=== PATIENT | female | born 1960 | race African-American/Black ===

== ENCOUNTER 2017-06-13 11:05 | Emergency (ER) | payer MEDICARE, MEDICAID ==
[~2017-06-13] VITALS: Ht 160 cm; Wt 71.0 kg
[~2017-06-13 11:05] MED LIST: ALLO100T PO; AMLO5TAB88 PO; ASPI-1158 PO; ATOR20TA PO; CLON0.2T12 PO; COR25 PO; CYM20 PO; DEXTL PO; HYDR-523 PO; LACT10SO7 PO; LEVO125T8 PO; LOSA50TA3 PO; NEPVIT PO; PREG100C PO; PREG50CA PO; PROT40 PO; RENA-VITE; SEVE800T8 PO
[2017-06-13 11:09] VITALS: BP 174/93
== END 2017-06-13 13:00 | disposition left against medical advice (07) ==
LOC: ER 12:36
DX: R07.9 Chest pain, unspecified (principal); Z53.21 Procedure and treatment not carried out due to patient leaving prior to being seen by health care provider

== ENCOUNTER 2017-07-08 05:22 | Inpatient (IN) | payer MEDICARE, MEDICAID ==
[2017-07-08] VITALS (68 sets, daily range): BP systolic 104–276; BP diastolic 57–200
[~2017-07-08] VITALS: Ht 160 cm; Wt 69.9 kg
[2017-07-08 06:56] LABS: INR 1.2; PROTHROMBIN TIME 12.3 sec (9.4-11.6)
[2017-07-08 06:57] LABS: BASOPHILS % 0.5 % (0.0-2.0); EOSINOPHILS % 4.7 % (0.0-5.0); HEMATOCRIT. 28.6 % (36.0-48.0); HEMOGLOBIN. 9.2 g/dL (12.0-16.0); LYMPHOCYTES % 9.4 % (20.0-50.0); MEAN CORPUSCULAR HEMOGLOBIN 27.6 pg (28.0-32.0); MEAN CORPUSCULAR VOLUME 85.6 fL (81.0-99.0); MEAN PLATELET VOLUME 9.7 fl (7.4-10.4); MONOCYTES % 10.3 % (2.0-8.0); NEUTROPHILS % 75.1 % (40.0-76.0); PLATELET 168 x1000/uL (130-400); RED BLOOD CELL COUNT 3.34 mill/uL (4.2-5.4); RED CELL DISTRIBUTION WIDTH 17.4 % (11.6-14.6)
[2017-07-08 07:07] LABS: CHLORIDE 100 mEq/L (98-107)
[2017-07-08] MEDS ORDERED: MAGNESIUM/ALUMINUM HYDROXIDE/SIMETHICONE 30ML UDC PO STA (08:01)
[2017-07-08] MEDS ORDERED: PANTOPRAZOLE SODIUM 40 MG/VIAL IV STA (08:01)
[2017-07-08] MEDS ORDERED: METOCLOPRAMIDE HCL 10MG/2ML VIAL IV ONE (08:15)
[2017-07-08] MEDS ORDERED: SODIUM CHLORIDE 0.9% 500 ML IV ONE (08:15)
[2017-07-08] MEDS ORDERED: DIPHENHYDRAMINE 50MG/ML VIAL IV ONE (08:15)
[2017-07-08] MEDS ORDERED: IOHEXOL-300 100 ML BOTTLE ONE (10:01)
[2017-07-08] MEDS ORDERED: NOREPINEPHRINE 4 MG in DEXT 5% WATER 246 ML IV ONE (11:30)
[2017-07-08] MEDS ORDERED: EPINEPHRINE 4 MG in DEXT 5% WATER 246 ML IV ONE (11:30)
[2017-07-08] MEDS: FOLIC ACID/VITAMIN B COMP W-C TABLET PO SCH (12:00)
[2017-07-08] MEDS ORDERED: SKIN ADHESIVE 0.7 GM EA TOP ONE (12:23)
[2017-07-08] MEDS ORDERED: BACITRACIN 50,000 UNITS/VIAL ONE (12:24)
[2017-07-08] MEDS ORDERED: NORMAL SALINE 0.9% 10 ML SYR ONE (12:24)
[2017-07-08] MEDS ORDERED: BACITRACIN 15GM TUBE TOP ONE (12:24)
[2017-07-08] MEDS ORDERED: BUPIVACAINE/EPINEPH/PF 0.25%/0.0005 10ML ONE (12:27)
[2017-07-08] MEDS: SEVELAMER CARBONATE 800 MG TABLET PO SCH ×2 (13:20→17:13)
[2017-07-08] MEDS ORDERED: HYDROMORPHONE HCL/PF 2MG/ML (OR) ONE (13:50)
[2017-07-08] MEDS ORDERED: MIDAZOLAM HCL 5 MG/ML VIAL ONE (13:50)
[2017-07-08] MEDS: AMLODIPINE 10MG TABLET PO SCH (14:15)
[2017-07-08] MEDS ORDERED: AMLO10TA4 PO (14:18)
[2017-07-08] MEDS ORDERED: CLON0.3T PO (14:18)
[2017-07-08] MEDS ORDERED: HYDR-4134 PO (14:18)
[2017-07-08] MEDS ORDERED: FENTANYL CITRATE/PF 500 MCG in SODIUM CHLORIDE 0.9% 40 ML IV PRN (15:45)
[2017-07-08] MEDS ORDERED: IPRATROPIUM/ALBUTEROL 0.5-3(2.5)MG/3ML NEB HHN PRN (15:45)
[2017-07-08] MEDS: PROPOFOL 10MG/ML 100ML 100 ML IV PRN ×2 (16:12→23:06)
[2017-07-08] MEDS: NICARDIPINE 50 MG in SODIUM CHLORIDE 0.9% 230 ML IV PRN (16:12)
[2017-07-08 16:15] LABS: BG BASE EXCESS -2.4 mmol/L (-2.0-2.0); BG CARBOXYHEMOGLOBIN 0.3 % (0.5-1.5); BG DEOXYHEMOGLOBIN 1.8 % (0.0-5.0); BG FRACTION INSPIRED OXYGEN 50; BG HCO3 ACT 23.2 mmol/L (22.0-26.0); BG METHEMOGLOBIN 0.1 % (0.0-1.5); BG OXYGEN SATURATION 98.2 % (92.0-98.5); BG OXYHEMOGLOBIN 97.8 % (94.0-97.0); BG PCO2 42.9 mmHg (35.0-45.0); BG PO2 167.3 mmHg (75.0-100.0); BG SAMPLE SITE A-LINE; BG TIDAL VOLUME(mL) 500 mL; BG TOTAL HEMOGLOBIN 9.8 g/dL (12.0-18.0); BG VENT MODE VENT - A/C; BG VENT RATE 12 set
[2017-07-08 16:16] LABS: BASOPHILS % 0.6 % (0.0-2.0); EOSINOPHILS % 4.2 % (0.0-5.0); HEMATOCRIT. 25.4 % (36.0-48.0); HEMOGLOBIN. 8.3 g/dL (12.0-16.0); LYMPHOCYTES % 5.9 % (20.0-50.0); MEAN CORPUSCULAR HEMOGLOBIN 28.3 pg (28.0-32.0); MEAN CORPUSCULAR VOLUME 86.2 fL (81.0-99.0); MEAN PLATELET VOLUME 10.1 fl (7.4-10.4); MONOCYTES % 4.4 % (2.0-8.0); NEUTROPHILS % 84.9 % (40.0-76.0); PLATELET 179 x1000/uL (130-400); RED BLOOD CELL COUNT 2.95 mill/uL (4.2-5.4); RED CELL DISTRIBUTION WIDTH 16.7 % (11.6-14.6)
[2017-07-08 16:24] LABS: INR 1.2; PARTIAL THROMBOPLASTIN TIME 32.5 sec (23.4-31.0); PROTHROMBIN TIME 12.8 sec (9.4-11.6)
[2017-07-08] MEDS ORDERED: DEXT 5%/0.45% NACL 1000ML 1,000 ML IV SCH (16:30)
[2017-07-08] MEDS: MONTELUKAST SODIUM 10MG TABLET PO SCH (17:24)
[2017-07-08] MEDS: IPRATROPIUM/ALBUTEROL 0.5-3(2.5)MG/3ML NEB HHN SCH (20:31)
[2017-07-09] VITALS (89 sets, daily range): BP systolic 119–242; BP diastolic 70–141
[2017-07-09 01:06] LABS: HEMATOCRIT. 31.3 % (36.0-48.0); MEAN CORPUSCULAR HEMOGLOBIN 27.7 pg (28.0-32.0); MEAN CORPUSCULAR VOLUME 86.4 fL (81.0-99.0); MEAN PLATELET VOLUME 9.2 fl (7.4-10.4); PLATELET 204 x1000/uL (130-400); RED BLOOD CELL COUNT 3.63 mill/uL (4.2-5.4); RED CELL DISTRIBUTION WIDTH 17.3 % (11.6-14.6)
[2017-07-09 01:06] LABS: BG BASE EXCESS -3.4 mmol/L (-2.0-2.0); BG CARBOXYHEMOGLOBIN 0.3 % (0.5-1.5); BG DEOXYHEMOGLOBIN 2.8 % (0.0-5.0); BG FRACTION INSPIRED OXYGEN 40; BG HCO3 ACT 21.3 mmol/L (22.0-26.0); BG METHEMOGLOBIN 0.1 % (0.0-1.5); BG OXYGEN SATURATION 97.2 % (92.0-98.5); BG OXYHEMOGLOBIN 96.8 % (94.0-97.0); BG PH 7.379 (7.350-7.450); BG PO2 112.3 mmHg (75.0-100.0); BG PRESSURE SUPPORT 8; BG SAMPLE SITE RIGHT RADIAL; BG VENT MODE VENT - CPAP
[2017-07-09 01:58] LABS: PLATELET ESTIMATE NORMAL
[2017-07-09] MEDS: MORPHINE SULFATE 4 MG/ML CPJ (NOT FOR IM USE) IV PRN ×9 (02:00→22:33)
[2017-07-09] MEDS: IPRATROPIUM/ALBUTEROL 0.5-3(2.5)MG/3ML NEB HHN SCH ×4 (02:06→20:03)
[2017-07-09] MEDS: FAMOTIDINE 20MG/2ML VIAL IV SCH ×2 (02:30→21:32)
[2017-07-09 04:44] LABS: HEMOGLOBIN. 9.5 g/dL (12.0-16.0); MEAN CORPUSCULAR HEMOGLOBIN 27.6 pg (28.0-32.0); MEAN CORPUSCULAR VOLUME 86.7 fL (81.0-99.0); PLATELET 228 x1000/uL (130-400); RED BLOOD CELL COUNT 3.46 mill/uL (4.2-5.4); RED CELL DISTRIBUTION WIDTH 17.3 % (11.6-14.6)
[2017-07-09] MEDS: ONDANSETRON HCL 4MG/2ML INJ IV PRN (06:15)
[2017-07-09] MEDS: SEVELAMER CARBONATE 800 MG TABLET PO SCH ×4 (08:20→18:02)
[2017-07-09 08:24] LABS: BG BASE EXCESS 1.3 mmol/L (-2.0-2.0); BG CARBOXYHEMOGLOBIN 0.6 % (0.5-1.5); BG DEOXYHEMOGLOBIN 10.7 % (0.0-5.0); BG FRACTION INSPIRED OXYGEN 21; BG HCO3 ACT 25.3 mmol/L (22.0-26.0); BG METHEMOGLOBIN 0.1 % (0.0-1.5); BG OXYGEN SATURATION 89.2 % (92.0-98.5); BG OXYHEMOGLOBIN 88.6 % (94.0-97.0); BG PCO2 37.6 mmHg (35.0-45.0); BG PH 7.446 (7.350-7.450); BG SAMPLE SITE A-LINE; BG TOTAL HEMOGLOBIN 9.3 g/dL (12.0-18.0); BG VENT MODE ROOM AIR
[2017-07-09] MEDS ORDERED: HYDROCODONE/ACETAMINOPHEN 5/325MG TABLET PO PRN (08:45)
[2017-07-09] MEDS: FOLIC ACID/VITAMIN B COMP W-C TABLET PO SCH (08:46)
[2017-07-09] MEDS: AMLODIPINE 10MG TABLET PO SCH ×2 (09:00→21:32)
[2017-07-09] MEDS: NICARDIPINE 50 MG in SODIUM CHLORIDE 0.9% 230 ML IV PRN (09:57)
[2017-07-09 10:01] LABS: PLATELET ESTIMATE NORMAL
[2017-07-09] MEDS ORDERED: HYDRALAZINE HCL 25MG TABLET PO SCH ×2 (10:15→14:00)
[2017-07-09] MEDS: CLONIDINE 0.3MG TABLET PO SCH ×3 (10:35→22:32)
[2017-07-09] MEDS: LEVOTHYROXINE SODIUM 125MCG TABLET PO SCH (10:36)
[2017-07-09] MEDS: HYDRALAZINE HCL 50MG TABLET PO SCH ×3 (10:36→22:33)
[2017-07-09] MEDS: GUAIFENESIN-DM 200MG-20MG/10ML UDC PO PRN ×2 (13:35→21:32)
[2017-07-09] MEDS ORDERED: CLONIDINE 0.3MG TABLET PO SCH (14:00)
[2017-07-09] MEDS ORDERED: LOSARTAN POTASSIUM 25 MG TABLET PO SCH (14:30)
[2017-07-09] MEDS ORDERED: HYDRALAZINE 20MG/ML VIAL IV PRN (14:30)
[2017-07-09] MEDS: CARVEDILOL 6.25 MG TABLET PO SCH ×2 (14:34→21:32)
[2017-07-09 14:55] LABS: *AMPHETAMINES SCREEN URINE NEGATIVE (NEGATIVE); *BARBITURATES SCREEN URINE NEGATIVE (NEGATIVE); *BENZODIAZEPINES SCREEN URINE PRESUMTIVE POSITIVE (NEGATIVE); *COCAINE SCREEN URINE PRESUMTIVE POSITIVE (NEGATIVE); CANNABINOID URINE SCREEN NEGATIVE (NEGATIVE); METHADONE URINE SCREEN NEGATIVE (NEGATIVE); OPIATES URINE SCREEN PRESUMTIVE POSITIVE (NEGATIVE); PHENCYCLIDINE URINE SCREEN NEGATIVE (NEGATIVE)
[2017-07-09] MEDS: MONTELUKAST SODIUM 10MG TABLET PO SCH (16:38)
[2017-07-10] VITALS (32 sets, daily range): BP systolic 116–166; BP diastolic 67–114
[2017-07-10] MEDS: IPRATROPIUM/ALBUTEROL 0.5-3(2.5)MG/3ML NEB HHN SCH ×4 (01:57→20:16)
[2017-07-10] MEDS: MORPHINE SULFATE 4 MG/ML CPJ (NOT FOR IM USE) IV PRN ×6 (02:07→21:43)
[2017-07-10] MEDS: CLONIDINE 0.3MG TABLET PO SCH ×3 (05:03→22:14)
[2017-07-10] MEDS: HYDRALAZINE HCL 50MG TABLET PO SCH ×3 (05:03→22:14)
[2017-07-10 05:30] LABS: BASOPHILS % 0.6 % (0.0-2.0); EOSINOPHILS % 2.3 % (0.0-5.0); HEMATOCRIT. 28.4 % (36.0-48.0); HEMOGLOBIN. 9.1 g/dL (12.0-16.0); MEAN CORPUSCULAR HEMOGLOBIN 27.4 pg (28.0-32.0); MEAN CORPUSCULAR VOLUME 85.8 fL (81.0-99.0); MEAN PLATELET VOLUME 9.6 fl (7.4-10.4); MONOCYTES % 5.2 % (2.0-8.0); NEUTROPHILS % 83.9 % (40.0-76.0); PLATELET 228 x1000/uL (130-400); RED BLOOD CELL COUNT 3.31 mill/uL (4.2-5.4); RED CELL DISTRIBUTION WIDTH 17.6 % (11.6-14.6)
[2017-07-10 05:38] LABS: CHLORIDE 104 mEq/L (98-107)
[2017-07-10 07:35] LABS: PHOSPHORUS 4.7 mg/dL (2.5-4.9)
[2017-07-10] MEDS: CARVEDILOL 6.25 MG TABLET PO SCH ×2 (08:12→22:10)
[2017-07-10] MEDS: AMLODIPINE 10MG TABLET PO SCH (08:12)
[2017-07-10] MEDS: FOLIC ACID/VITAMIN B COMP W-C TABLET PO SCH (08:13)
[2017-07-10] MEDS: SEVELAMER CARBONATE 800 MG TABLET PO SCH ×3 (08:13→18:20)
[2017-07-10] MEDS: LEVOTHYROXINE SODIUM 125MCG TABLET PO SCH (08:13)
[2017-07-10] MEDS ORDERED: DOCUSATE SODIUM 250MG CAPSULE PO PRN (08:30)
[2017-07-10] MEDS ORDERED: SPIRONOLACTONE 25MG TABLET PO SCH (10:30)
[2017-07-10] MEDS: DOCUSATE SODIUM 250MG CAPSULE PO SCH (12:19)
[2017-07-10 13:12] LABS: HEPATITIS B SURFACE ANTIGEN NEGATIVE
[2017-07-10 13:41] LABS: HEPATITIS A AB IGM NEGATIVE (NEGATIVE)
[2017-07-10] MEDS: MONTELUKAST SODIUM 10MG TABLET PO SCH (18:26)
[2017-07-10] MEDS: FAMOTIDINE 20MG/2ML VIAL IV SCH (22:07)
[2017-07-10] MEDS: POLYETHYLENE GLYCOL 3350 (17GM) 1 DOSE PACK PO SCH (22:08)
[2017-07-10] MEDS: NIFEDIPINE XL 60MG TAB PO SCH (22:13)
[2017-07-10] MEDS: GUAIFENESIN-DM 200MG-20MG/10ML UDC PO PRN (22:36)
[2017-07-11] VITALS (36 sets, daily range): BP systolic 93–145; BP diastolic 51–82
[2017-07-11] MEDS: EPOETIN ALFA 4000UNITS/ML VIAL SUBCUT SCH (01:18)
[2017-07-11] MEDS: MORPHINE SULFATE 4 MG/ML CPJ (NOT FOR IM USE) IV PRN ×9 (01:27→22:00)
[2017-07-11 04:41] LABS: BASOPHILS % 0.4 % (0.0-2.0); EOSINOPHILS % 6.3 % (0.0-5.0); HEMATOCRIT. 27.6 % (36.0-48.0); HEMOGLOBIN. 8.8 g/dL (12.0-16.0); MEAN CORPUSCULAR HEMOGLOBIN 27.4 pg (28.0-32.0); MEAN CORPUSCULAR VOLUME 85.5 fL (81.0-99.0); MEAN PLATELET VOLUME 8.6 fl (7.4-10.4); MONOCYTES % 7.8 % (2.0-8.0); NEUTROPHILS % 75.5 % (40.0-76.0); PLATELET 194 x1000/uL (130-400); RED BLOOD CELL COUNT 3.22 mill/uL (4.2-5.4); RED CELL DISTRIBUTION WIDTH 17.2 % (11.6-14.6)
[2017-07-11 05:22] LABS: CHLORIDE 107 mEq/L (98-107); PHOSPHORUS 3.4 mg/dL (2.5-4.9)
[2017-07-11] MEDS: HYDRALAZINE HCL 50MG TABLET PO SCH (05:53)
[2017-07-11] MEDS: CLONIDINE 0.3MG TABLET PO SCH ×3 (05:54→20:19)
[2017-07-11] MEDS: IPRATROPIUM/ALBUTEROL 0.5-3(2.5)MG/3ML NEB HHN SCH ×2 (08:13→20:14)
[2017-07-11] MEDS: SEVELAMER CARBONATE 800 MG TABLET PO SCH ×2 (08:20→08:45)
[2017-07-11] MEDS: LEVOTHYROXINE SODIUM 125MCG TABLET PO SCH (08:45)
[2017-07-11] MEDS: FOLIC ACID/VITAMIN B COMP W-C TABLET PO SCH (08:49)
[2017-07-11] MEDS: CARVEDILOL 6.25 MG TABLET PO SCH ×2 (08:50→20:18)
[2017-07-11] MEDS: NIFEDIPINE XL 60MG TAB PO SCH ×2 (08:50→20:18)
[2017-07-11] MEDS: DOCUSATE SODIUM 250MG CAPSULE PO SCH (08:50)
[2017-07-11] MEDS ORDERED: KETOROLAC 15MG/ML VIAL IV NR (10:15)
[2017-07-11] MEDS ORDERED: IPRATROPIUM/ALBUTEROL 0.5-3(2.5)MG/3ML NEB HHN SCH (10:15)
[2017-07-11] MEDS ORDERED: SORBITOL 70% SOLN 30ML PO NR (10:30)
[2017-07-11 10:31] LABS: CREATINE KINASE 64 IU/L (26-192)
[2017-07-11] MEDS: OXYCODONE HCL/ACETAMINOPHEN 5/325MG TABLET PO PRN ×2 (11:25→23:02)
[2017-07-11] MEDS: ALLOPURINOL 100 MG TABLET PO SCH (11:25)
[2017-07-11] MEDS: CELECOXIB 200MG CAPSULE PO SCH (11:44)
[2017-07-11] MEDS: MONTELUKAST SODIUM 10MG TABLET PO SCH (17:57)
[2017-07-11] MEDS: FAMOTIDINE 20MG/2ML VIAL IV SCH (20:17)
[2017-07-11] MEDS: GUAIFENESIN-DM 200MG-20MG/10ML UDC PO PRN (20:18)
[2017-07-11] MEDS: POLYETHYLENE GLYCOL 3350 (17GM) 1 DOSE PACK PO SCH (20:19)
[2017-07-12] VITALS (21 sets, daily range): BP systolic 105–152; BP diastolic 64–97
[2017-07-12] MEDS: MORPHINE SULFATE 4 MG/ML CPJ (NOT FOR IM USE) IV PRN ×7 (02:01→22:20)
[2017-07-12] MEDS: IPRATROPIUM/ALBUTEROL 0.5-3(2.5)MG/3ML NEB HHN SCH ×2 (02:08→07:40)
[2017-07-12] MEDS: OXYCODONE HCL/ACETAMINOPHEN 5/325MG TABLET PO PRN ×2 (05:01→21:07)
[2017-07-12] MEDS: CLONIDINE 0.3MG TABLET PO SCH ×3 (05:01→21:11)
[2017-07-12 05:41] LABS: BASOPHILS % 0.3 % (0.0-2.0); EOSINOPHILS % 9.1 % (0.0-5.0); HEMATOCRIT. 25.5 % (36.0-48.0); HEMOGLOBIN. 8.1 g/dL (12.0-16.0); LYMPHOCYTES % 13.9 % (20.0-50.0); MEAN CORPUSCULAR HEMOGLOBIN 27.2 pg (28.0-32.0); MEAN CORPUSCULAR VOLUME 85.7 fL (81.0-99.0); MEAN PLATELET VOLUME 9.3 fl (7.4-10.4); MONOCYTES % 7.5 % (2.0-8.0); NEUTROPHILS % 69.2 % (40.0-76.0); PLATELET 231 x1000/uL (130-400); RED BLOOD CELL COUNT 2.97 mill/uL (4.2-5.4); RED CELL DISTRIBUTION WIDTH 17.8 % (11.6-14.6)
[2017-07-12 07:09] LABS: PHOSPHORUS 2.5 mg/dL (2.5-4.9)
[2017-07-12] MEDS: LEVOTHYROXINE SODIUM 125MCG TABLET PO SCH (09:03)
[2017-07-12] MEDS: ALLOPURINOL 100 MG TABLET PO SCH (09:03)
[2017-07-12] MEDS: CELECOXIB 200MG CAPSULE PO SCH (09:04)
[2017-07-12] MEDS: FOLIC ACID/VITAMIN B COMP W-C TABLET PO SCH (09:04)
[2017-07-12] MEDS: CARVEDILOL 6.25 MG TABLET PO SCH ×2 (09:04→21:11)
[2017-07-12] MEDS: DOCUSATE SODIUM 250MG CAPSULE PO SCH (09:04)
[2017-07-12] MEDS: NIFEDIPINE XL 60MG TAB PO SCH ×2 (09:04→21:11)
[2017-07-12] MEDS ORDERED: TRAMADOL HCL/ACETAMINOPHEN 37.5/325MG TABLET PO PRN (11:00)
[2017-07-12] MEDS ORDERED: CARBAMAZEPINE 100MG TABLET CHEW PO SCH (11:00)
[2017-07-12] MEDS: IPRATROPIUM/ALBUTEROL 0.5-3(2.5)MG/3ML NEB HHN PRN (14:06)
[2017-07-12] MEDS: MONTELUKAST SODIUM 10MG TABLET PO SCH (18:05)
[2017-07-12] MEDS: CARBAMAZEPINE 200MG TABLET PO SCH (18:05)
[2017-07-12] MEDS ORDERED: FLUCONAZOLE 150MG TABLET PO NR (20:30)
[2017-07-12] MEDS: POLYETHYLENE GLYCOL 3350 (17GM) 1 DOSE PACK PO SCH (21:00)
[2017-07-12 21:04] LABS: *AMPHETAMINES SCREEN URINE NEGATIVE (NEGATIVE); *BARBITURATES SCREEN URINE NEGATIVE (NEGATIVE); *BENZODIAZEPINES SCREEN URINE PRESUMTIVE POSITIVE (NEGATIVE); *COCAINE SCREEN URINE PRESUMTIVE POSITIVE (NEGATIVE); CANNABINOID URINE SCREEN NEGATIVE (NEGATIVE); METHADONE URINE SCREEN NEGATIVE (NEGATIVE); OPIATES URINE SCREEN PRESUMTIVE POSITIVE (NEGATIVE); PHENCYCLIDINE URINE SCREEN NEGATIVE (NEGATIVE)
[2017-07-12] MEDS: FAMOTIDINE 20MG/2ML VIAL IV SCH (21:06)
[2017-07-13] VITALS (12 sets, daily range): BP systolic 112–154; BP diastolic 63–92
[2017-07-13] MEDS: MORPHINE SULFATE 4 MG/ML CPJ (NOT FOR IM USE) IV PRN ×3 (05:44→14:37)
[2017-07-13] MEDS: CLONIDINE 0.3MG TABLET PO SCH ×3 (06:00→21:18)
[2017-07-13 06:27] LABS: BASOPHILS % 0.6 % (0.0-2.0); EOSINOPHILS % 8.5 % (0.0-5.0); HEMATOCRIT. 28.3 % (36.0-48.0); HEMOGLOBIN. 9.3 g/dL (12.0-16.0); LYMPHOCYTES % 15.5 % (20.0-50.0); MEAN CORPUSCULAR HEMOGLOBIN 27.9 pg (28.0-32.0); MEAN CORPUSCULAR VOLUME 84.9 fL (81.0-99.0); MEAN PLATELET VOLUME 9.1 fl (7.4-10.4); MONOCYTES % 7.9 % (2.0-8.0); NEUTROPHILS % 67.5 % (40.0-76.0); PLATELET 273 x1000/uL (130-400); RED BLOOD CELL COUNT 3.33 mill/uL (4.2-5.4); RED CELL DISTRIBUTION WIDTH 17.6 % (11.6-14.6)
[2017-07-13] MEDS: LEVOTHYROXINE SODIUM 125MCG TABLET PO SCH (06:47)
[2017-07-13] MEDS: DOCUSATE SODIUM 250MG CAPSULE PO SCH (08:29)
[2017-07-13] MEDS: CARBAMAZEPINE 200MG TABLET PO SCH ×2 (08:29→17:45)
[2017-07-13] MEDS: ALLOPURINOL 100 MG TABLET PO SCH (08:29)
[2017-07-13] MEDS: FOLIC ACID/VITAMIN B COMP W-C TABLET PO SCH (08:29)
[2017-07-13] MEDS: NIFEDIPINE XL 60MG TAB PO SCH ×2 (09:00→20:30)
[2017-07-13 09:20] LABS: CARBAMAZEPINE 7.2 ug/mL (4-12); CHLORIDE 107 mEq/L (98-107)
[2017-07-13] MEDS: CELECOXIB 200MG CAPSULE PO SCH (14:37)
[2017-07-13] MEDS: CARVEDILOL 6.25 MG TABLET PO SCH ×2 (14:37→20:30)
[2017-07-13] MEDS: MONTELUKAST SODIUM 10MG TABLET PO SCH (17:45)
[2017-07-13] MEDS: POLYETHYLENE GLYCOL 3350 (17GM) 1 DOSE PACK PO SCH ×3 (20:30→21:00)
[2017-07-13] MEDS: FAMOTIDINE 20MG/2ML VIAL IV SCH (20:30)
[2017-07-13] MEDS: GUAIFENESIN-DM 200MG-20MG/10ML UDC PO PRN (21:17)
[2017-07-13] MEDS: EPOETIN ALFA 4000UNITS/ML VIAL SUBCUT SCH (21:17)
[2017-07-14] VITALS (12 sets, daily range): BP systolic 127–159; BP diastolic 78–104
[2017-07-14] MEDS: OXYCODONE HCL/ACETAMINOPHEN 5/325MG TABLET PO PRN (03:29)
[2017-07-14] MEDS: IPRATROPIUM/ALBUTEROL 0.5-3(2.5)MG/3ML NEB HHN PRN ×3 (03:45→21:16)
[2017-07-14] MEDS: ONDANSETRON HCL 4MG/2ML INJ IV PRN ×2 (04:40→16:43)
[2017-07-14] MEDS: LEVOTHYROXINE SODIUM 125MCG TABLET PO SCH (05:48)
[2017-07-14] MEDS: CLONIDINE 0.3MG TABLET PO SCH ×3 (05:49→23:18)
[2017-07-14 06:51] LABS: BASOPHILS % 0.6 % (0.0-2.0); EOSINOPHILS % 5.9 % (0.0-5.0); HEMATOCRIT. 26.4 % (36.0-48.0); HEMOGLOBIN. 8.7 g/dL (12.0-16.0); LYMPHOCYTES % 15.7 % (20.0-50.0); MEAN CORPUSCULAR HEMOGLOBIN 28.1 pg (28.0-32.0); MEAN CORPUSCULAR VOLUME 84.5 fL (81.0-99.0); MEAN PLATELET VOLUME 8.5 fl (7.4-10.4); MONOCYTES % 10.3 % (2.0-8.0); NEUTROPHILS % 67.5 % (40.0-76.0); PLATELET 251 x1000/uL (130-400); RED BLOOD CELL COUNT 3.12 mill/uL (4.2-5.4); RED CELL DISTRIBUTION WIDTH 17.7 % (11.6-14.6)
[2017-07-14 07:04] LABS: CHLORIDE 109 mEq/L (98-107); PHOSPHORUS 2.7 mg/dL (2.5-4.9)
[2017-07-14] MEDS: DOCUSATE SODIUM 250MG CAPSULE PO SCH (08:25)
[2017-07-14] MEDS: FOLIC ACID/VITAMIN B COMP W-C TABLET PO SCH (08:25)
[2017-07-14] MEDS: ALLOPURINOL 100 MG TABLET PO SCH (08:25)
[2017-07-14] MEDS: CARVEDILOL 6.25 MG TABLET PO SCH (08:25)
[2017-07-14] MEDS: CELECOXIB 200MG CAPSULE PO SCH (08:25)
[2017-07-14] MEDS: NIFEDIPINE XL 60MG TAB PO SCH ×2 (08:26→22:17)
[2017-07-14] MEDS ORDERED: AMOXICILLIN/POTASSIUM CLAVULANATE 875/125MG TAB PO SCH (09:00)
[2017-07-14] MEDS: AMOXICILLIN/POTASSIUM CLAVULANATE 500/125MG TAB PO SCH (09:10)
[2017-07-14] MEDS: FLUTICASONE PROPIONATE 50MCG/SPRAY BOTTLE BOTHNSTRLS SCH ×2 (09:10→22:15)
[2017-07-14] MEDS: MONTELUKAST SODIUM 10MG TABLET PO SCH (16:41)
[2017-07-14] MEDS ORDERED: FLUTICASONE PROPIONATE 50MCG/SPRAY BOTTLE BOTHNSTRLS SCH (21:00)
[2017-07-14] MEDS: FAMOTIDINE 20MG/2ML VIAL IV SCH (22:16)
[2017-07-14] MEDS: CARVEDILOL 12.5MG TABLET PO SCH (22:18)
[2017-07-14] MEDS: POLYETHYLENE GLYCOL 3350 (17GM) 1 DOSE PACK PO SCH (22:20)
[2017-07-15] VITALS (9 sets, daily range): BP systolic 134–165; BP diastolic 88–106
[2017-07-15] MEDS: GUAIFENESIN-DM 200MG-20MG/10ML UDC PO PRN (05:03)
[2017-07-15] MEDS: CLONIDINE 0.3MG TABLET PO SCH ×2 (05:33→14:04)
[2017-07-15] MEDS: LEVOTHYROXINE SODIUM 125MCG TABLET PO SCH (05:33)
[2017-07-15 06:09] LABS: BASOPHILS % 0.7 % (0.0-2.0); EOSINOPHILS % 5.8 % (0.0-5.0); HEMATOCRIT. 26.2 % (36.0-48.0); HEMOGLOBIN. 8.3 g/dL (12.0-16.0); LYMPHOCYTES % 14.9 % (20.0-50.0); MEAN CORPUSCULAR VOLUME 85.1 fL (81.0-99.0); MEAN PLATELET VOLUME 9.3 fl (7.4-10.4); MONOCYTES % 9.2 % (2.0-8.0); NEUTROPHILS % 69.4 % (40.0-76.0); PLATELET 268 x1000/uL (130-400); RED BLOOD CELL COUNT 3.08 mill/uL (4.2-5.4); RED CELL DISTRIBUTION WIDTH 17.6 % (11.6-14.6)
[2017-07-15] MEDS: CELECOXIB 200MG CAPSULE PO SCH (08:16)
[2017-07-15] MEDS: OXYCODONE HCL/ACETAMINOPHEN 5/325MG TABLET PO PRN (08:16)
[2017-07-15] MEDS: ALLOPURINOL 100 MG TABLET PO SCH (08:16)
[2017-07-15] MEDS: AMOXICILLIN/POTASSIUM CLAVULANATE 500/125MG TAB PO SCH (08:16)
[2017-07-15] MEDS: FOLIC ACID/VITAMIN B COMP W-C TABLET PO SCH (08:16)
[2017-07-15] MEDS: CARVEDILOL 12.5MG TABLET PO SCH (08:17)
[2017-07-15] MEDS: NIFEDIPINE XL 60MG TAB PO SCH (08:17)
[2017-07-15] MEDS: DOCUSATE SODIUM 250MG CAPSULE PO SCH (08:17)
[2017-07-15] MEDS: FLUTICASONE PROPIONATE 50MCG/SPRAY BOTTLE BOTHNSTRLS SCH (08:17)
[2017-07-15 10:50] LABS: PHOSPHORUS 3.7 mg/dL (2.5-4.9)
[2017-07-15] MEDS ORDERED: LIDOCAINE HCL 1% 20ML VIAL (Pyxis) INJ INJ NR (11:30)
[2017-07-15] MEDS: ONDANSETRON HCL 4MG/2ML INJ IV PRN (11:59)
[2017-07-15] MEDS ORDERED: OXYC-523 PO (12:10)
[2017-07-15] MEDS ORDERED: HYDR-4135 PO (12:10)
[2017-07-15] MEDS ORDERED: DOCU250C14 PO (12:10)
[2017-07-15] MEDS ORDERED: CLON0.3T4 PO (12:10)
[2017-07-15] MEDS ORDERED: CELE200C PO (12:10)
[2017-07-15] MEDS ORDERED: MONT10TA21 PO (12:10)
[2017-07-15] MEDS ORDERED: NIFE60TA64 PO (12:10)
[2017-07-15] MEDS ORDERED: COR12 PO (12:10)
[2017-07-15] MEDS ORDERED: NEPVIT PO (12:10)
[2017-07-15] MEDS ORDERED: LEVO125T8 PO (12:10)
[2017-07-15] MEDS ORDERED: HYDRALAZINE HCL 50MG TABLET PO SCH (14:00)
== END 2017-07-15 16:05 | disposition home or self-care (01) | DRG 163 ==
LOC: ER 05:22 → EDBEDREQSVC 10:55 → CVICU 10:55 → EDBEDREQSVC 10:59 → ENRESERV 11:02 → 3WST 07-12 20:20
PROVIDERS: ADMIT Internal Medicine; ATTEND Internal Medicine
PROC: 02BN0ZX Excision of Pericardium, Open Approach, Diagnostic (ICD-10-PCS; principal; 2017-07-08)
PROC: 0W9D0ZZ Drainage of Pericardial Cavity, Open Approach (ICD-10-PCS; 2017-07-08)
PROC: B246ZZ4 Ultrasonography of Right and Left Heart, Transesophageal (ICD-10-PCS; 2017-07-08)
PROC: 0W9B00Z Drainage of Left Pleural Cavity with Drainage Device, Open Approach (ICD-10-PCS; 2017-07-08)
PROC: 5A1D70Z Performance of Urinary Filtration, Intermittent, Less than 6 Hours Per Day (ICD-10-PCS; 2017-07-08)
PROC: 5A1D70Z Performance of Urinary Filtration, Intermittent, Less than 6 Hours Per Day (ICD-10-PCS; 2017-07-10)
PROC: 5A1D70Z Performance of Urinary Filtration, Intermittent, Less than 6 Hours Per Day (ICD-10-PCS; 2017-07-11)
PROC: 5A1D70Z Performance of Urinary Filtration, Intermittent, Less than 6 Hours Per Day (ICD-10-PCS; 2017-07-13)
PROC: 5A1D70Z Performance of Urinary Filtration, Intermittent, Less than 6 Hours Per Day (ICD-10-PCS; 2017-07-15)
DX: J18.9 Pneumonia, unspecified organism (principal); N18.6 End stage renal disease; I31.4 Cardiac tamponade; J96.00 Acute respiratory failure, unspecified whether with hypoxia or hypercapnia; E11.22 Type 2 diabetes mellitus with diabetic chronic kidney disease; I27.20 Pulmonary hypertension, unspecified; I13.11 Hypertensive heart and chronic kidney disease without heart failure, with stage 5 chronic kidney disease, or end stage renal disease; E83.39 Other disorders of phosphorus metabolism; J44.0 Chronic obstructive pulmonary disease with (acute) lower respiratory infection; I69.351 Hemiplegia and hemiparesis following cerebral infarction affecting right dominant side; I69.354 Hemiplegia and hemiparesis following cerebral infarction affecting left non-dominant side; N25.81 Secondary hyperparathyroidism of renal origin; D63.1 Anemia in chronic kidney disease; E03.9 Hypothyroidism, unspecified; E78.00 Pure hypercholesterolemia, unspecified; F10.21 Alcohol dependence, in remission; F12.90 Cannabis use, unspecified, uncomplicated; F14.90 Cocaine use, unspecified, uncomplicated; G40.909 Epilepsy, unspecified, not intractable, without status epilepticus; I08.0 Rheumatic disorders of both mitral and aortic valves; J31.0 Chronic rhinitis; K59.00 Constipation, unspecified; M10.9 Gout, unspecified; Z79.899 Other long term (current) drug therapy; Z86.718 Personal history of other venous thrombosis and embolism; Z87.01 Personal history of pneumonia (recurrent); Z99.2 Dependence on renal dialysis; I25.2 Old myocardial infarction; Z88.6 Allergy status to analgesic agent; Z88.8 Allergy status to other drugs, medicaments and biological substances; Z79.82 Long term (current) use of aspirin
CPT/HCPCS: 31500; 36415; 36600; 70551; 71045; 74177; 76705; 78580; 80048; 80061; 80156; 80305; 82375; 82550; 82805; 83615; 83735; 83880; 84100; 84443; 84484; 85379; 86705; 86709; 86803; 86850; 86900; 86920; 87070; 87075; 87116; 87340; 88108; 88305; 93005; 93306; 93970; 94002; 94640; 96374; 96375; 97116; 97163; 97167; 97530; 99285; C9113; J0171; J0360; J0885; J1170; J1200; J1885; J2250; J2270; J2405; J2704; J2765; J3010; J3490; J7030; J7040; J7050; J7060; J7620; L3908; Q9967